=== PATIENT | male | born 1965 | race Caucasian/White ===

== ENCOUNTER 2024-10-17 08:26 | Outpatient (CLI) | payer OTHER, SELFPAY ==
--- NOTE | 2024-10-17 09:51 | P.ANES_ITS ---
Anesthesia Charges Start Date/Time Anesthesia Start Date: 10/17/24 Anesthesia Start Time: 09:15 Stop Date/Time Anesthesia Stop Date: 10/17/24 Anesthesia Stop Time: 09:50 Coding CPT Codes CPT Codes: ANES LWR INTST NDSC NOS - [id number] ([id number]) P3 - PATIENT W/SEVERE SYS DISEASE, QK - MULTI SPINDLE OPERATOR 2-4 CNCRNT ANES PROC, QX - LABEL CODER SVC W/ MD MED DIRECTION
--- NOTE | 2024-10-17 09:51 | W.ANESCHARGE ---
Anesthesia Charges Start Date/Time Anesthesia Start Date: 10/17/24 Anesthesia Start Time: 09:15 Stop Date/Time Anesthesia Stop Date: 10/17/24 Anesthesia Stop Time: 09:50 Coding CPT Codes CPT Codes: ANES LWR INTST NDSC NOS - [id number] ([id number]) P3 - PATIENT W/SEVERE SYS DISEASE, QK - ENVIRONMENTAL SERVICE AIDE 2-4 CNCRNT ANES PROC, QX - ELECTRONICS INSTALLER SVC W/ MD MED DIRECTION
--- NOTE | 2024-10-17 10:11 | P.ANES_ITS ---
Anesthesia Charges Start Date/Time Anesthesia Start Date: 10/17/24 Anesthesia Start Time: 09:15 Stop Date/Time Anesthesia Stop Date: 10/17/24 Anesthesia Stop Time: 09:50 Coding CPT Codes CPT Codes: ANES LWR INTST NDSC NOS - [id number] ([id number]) QK - CREDIT CORRESPONDENCE CLERK 2-4 CNCRNT ANES PROC, QX - SIMPLEX OPERATOR SVC W/ MED DIRECTION, P3 - PATIENT W/SEVERE SYS DISEASE
--- NOTE | 2024-10-17 10:11 | W.ANESCHARGE ---
Anesthesia Charges Start Date/Time Anesthesia Start Date: 10/17/24 Anesthesia Start Time: 09:15 Stop Date/Time Anesthesia Stop Date: 10/17/24 Anesthesia Stop Time: 09:50 Coding CPT Codes CPT Codes: ANES LWR INTST NDSC NOS - [id number] ([id number]) QK - CORE PASTER 2-4 CNCRNT ANES PROC, QX - FAMILY DINNER SERVICE SPECIALIST SVC W/ MED DIRECTION, P3 - PATIENT W/SEVERE SYS DISEASE
== END 2024-10-17 08:27 | disposition home or self-care (01) ==
PROVIDERS: PCP Family Medicine; Visit Provider Internal Medicine Gastroenterology
DX: Z12.11 Encounter for screening for malignant neoplasm of colon (principal); Z86.0101 Personal history of adenomatous and serrated colon polyps; D12.2 Benign neoplasm of ascending colon; D12.8 Benign neoplasm of rectum
CPT/HCPCS: 00811; 00812; 45385; 88305; J2704